=== PATIENT | female | born 1990 | race Caucasian/White ===

== ENCOUNTER 2020-08-19 15:37 | Inpatient (IN) | payer MEDICAID ==
[~2020-08-19] VITALS: Ht 172.7 cm; Wt 113.4 kg
[2020-08-19] MEDS ORDERED: Z GUARD REMEDY 2 OZ OINT TP PRN (16:30)
[2020-08-19] MEDS ORDERED: ACETAMINOPHEN 325 MG TABLET PO PRN (16:30)
[2020-08-19] MEDS ORDERED: ONDANSETRON HCL/PF 4 MG/2 ML VIAL IVP PRN (16:30)
[2020-08-19] MEDS ORDERED: IV NS 0.9% 1,000 ML IV PRN (16:30)
[2020-08-19] MEDS ORDERED: MAGNESIUM HYDROXIDE 30 ML UDC PO PRN (16:30)
[2020-08-19] MEDS ORDERED: HYDROCODONE/APAP 5/325MG TABLET PO PRN (16:30)
[2020-08-19] MEDS ORDERED: MAG HYDROX/AL HYDROX/SIMETH 30 ML UDC PO PRN (16:30)
[2020-08-19] MEDS: METRONIDAZOLE 500 MG TABLET PO SCH (18:29)
[2020-08-19] MEDS: CEFTRIAXONE 1 G in IV D5W 50 ML IV SCH (18:30)
[2020-08-19 18:44] VITALS: BP 130/58
--- NOTE | 2020-08-19 18:47 | NUR ---
MS RN NOTE PATIENT TRANSFERED FOR[facility] 08/19/20 AT 1600 ADMITTING DIAGNOSIS SEPSIS, VITAL SIGNS STABLE, BREATHING EVEN AND UNLABORED, DENIED ALL PAIN, SKIN ASSESSMENT CLEAR, NO WOUNDS, INTACT. TOLERATING ROOM AIR WELL. BED LOW AND LOCKED POSITION SIDE RAILS UP X2 , HOB ELEVATED, HAT IN REACH FOR STOOL SAMPLE, WAITING ON COLLECTION. RAPID COVID TEST PENDING , ON ISOLATION PRECAUTIONS UNTIL RESULTS.
--- NOTE | 2020-08-19 19:05 | NUR ---
MS RN OPENING NOTES: RECEIVED PATIENT IN BED, ASLEEP. CALL LIGHT WITHIN REACH. BED IN LOWEST AND LOCKED POSITION. NO S/S OF DISTRESS NOTED.
[2020-08-19 20:01] VITALS: BP 128/73
[2020-08-20] MEDS: METRONIDAZOLE 500 MG TABLET PO SCH ×3 (05:07→21:06)
[2020-08-20 05:52] LABS: BASOPHILS % (AUTO) 0.2 % (0.0-2.0); EOSINOPHILS % (AUTO) 0.3 % (0.0-6.0); HEMATOCRIT 35 % (33-45); HEMOGLOBIN 11.3 g/dL (11.5-14.8); LYMPHOCYTES # (AUTO) 2.7 /CMM (0.8-4.8); LYMPHOCYTES % (AUTO) 19.6 % (20.0-44.0); MEAN CORPUSCULAR HGB CONC 33 g/dl (31.0-36.0); MEAN CORPUSCULAR VOLUME 88 fL (82-100); MONOCYTES # (AUTO) 1.2 /CMM (0.1-1.30); MONOCYTES % (AUTO) 8.8 % (2.0-12.0); NEUTROPHILS # (AUTO) 9.9 /CMM (1.8-8.9); NEUTROPHILS % (AUTO) 71.1 % (43.0-81.0); PLATELET COUNT (AUTO) 276 /CMM (150-450); RED BLOOD CELL COUNT(AUTO) 3.99 MIL/uL (4.0-5.2); WHITE BLOOD COUNT (AUTO) 13.9 K/uL (4.3-11.0)
[2020-08-20 06:16] LABS: ALBUMIN 2.9 g/dL (3.4-5.0); BILIRUBIN,TOTAL 0.7 mg/dL (0.2-1.0); CALCIUM, SERUM 8.7 mg/dL (8.5-10.1); CREATININE 0.7 mg/dL (0.6-1.3); PHOSPHORUS 2.3 mg/dL (2.5-4.9); POTASSIUM 2.9 mmol/L (3.5-5.1)
--- NOTE | 2020-08-20 07:30 | NUR ---
MS CASTAÑEDA OPENING NOTES RECEIVED PATIENT IN BED, RESTING. PATIENT HAS S/S OF ACUTE DISTRESS NOTED. NO SOB. IV RUNNING NS @ 75 ML/HR ON LFA BUTTERFLY. PATIENT IS AMBULATORY NO SKIN ISSUES PER REPORT. ABLE TO MAKE NEEDS KNOWN. CALL LIGHT WITHIN REACH. BED IN LOWEST AND LOCKED POSITION. WILL CONTINUE TO MONITOR THROUGHOUT SHIFT Addendum: 08/20/20 at 1843 by MATTHEW CASEY RN CORRECTION; PATIENT HAS NO S/S OF ACUTE DISTRESS
[2020-08-20 08:04] VITALS: BP 149/92
[2020-08-20] MEDS ORDERED: POTASSIUM CHLORIDE 20 MEQ TAB.PRT.SR PO ONE (09:30)
[2020-08-20] MEDS ORDERED: K PHOS NEUTRAL 250 MG TABLET PO ONE (11:00)
--- NOTE | 2020-08-20 11:03 | NUR ---
RN NOTES SPOKE WITH PATIENT REGARDING VACCINATION STATUS OF FLU VACCINE. PATIENT WAS OKAY TO GET FLU VACCINE CLOSE TO HER DISCHARGE FROM THE HOSPITAL.
[2020-08-20 16:04] VITALS: BP 123/68
[2020-08-20] MEDS: CEFTRIAXONE 1 G in IV D5W 50 ML IV SCH (17:15)
--- NOTE | 2020-08-20 18:53 | NUR ---
MS RN CLOSING NOTES PATIENT IN BED, RESTING. PATIENT HAS NO S/S OF ACUTE DISTRESS NOTED. NO SOB. PATIENT HAS LFA BUTTERLY. PATIENT VERBALIZED TO NOT BE HOOKED UP TO THE IV FLUIDS FOR NOW. PATIENT IS ABLE TO DRINK AND VERBALIZED UNDERSTANDING OF THE IMPORTANCE OF HYDRATION. PATIENT IS AMBULATORY NO SKIN ISSUE. ABLE TO MAKE NEEDS KNOWN. CALL LIGHT WITHIN REACH. BED IN LOWEST AND LOCKED POSITION. NEEDS MET THROUGHOUT THE SHIFT.
--- NOTE | 2020-08-20 19:30 | NUR ---
MS/RN NOTES RECEIVED PATIENT IN BED RESTING. PATIENT IS ALERT AND ORIENTED X 4. PATIENT BREATHING IS EVEN AND UNLABORED. NO SOB OR RESPIRATORY DISTRESS NOTED. PATIENT STATES NO PAIN AT THIS TIME. SAFETY MEASURES ARE IN PLACE, BED IS LOCKED AND PLACED IN THE LOW POSITION, SIDE RAILS UP X 2, CALL LIGHT IS WITHIN REACH. WILL CONTINUE WITH PATIENT PLAN OF CARE.
[2020-08-20 20:00] VITALS: BP 156/93
[2020-08-21] MEDS: METRONIDAZOLE 500 MG TABLET PO SCH (05:15)
[2020-08-21 06:09] LABS: BASOPHILS # (AUTO) 0.1 /CMM (0.0-0.2); BASOPHILS % (AUTO) 1.3 % (0.0-2.0); EOSINOPHILS % (AUTO) 1.1 % (0.0-6.0); HEMATOCRIT 37 % (33-45); LYMPHOCYTES # (AUTO) 2.8 /CMM (0.8-4.8); MEAN CORPUSCULAR HGB CONC 33 g/dl (31.0-36.0); MEAN CORPUSCULAR VOLUME 87 fL (82-100); MONOCYTES % (AUTO) 9.4 % (2.0-12.0); NEUTROPHILS # (AUTO) 6.3 /CMM (1.8-8.9); NEUTROPHILS % (AUTO) 61.2 % (43.0-81.0); PLATELET COUNT (AUTO) 287 /CMM (150-450); RED BLOOD CELL COUNT(AUTO) 4.23 MIL/uL (4.0-5.2); WHITE BLOOD COUNT (AUTO) 10.3 K/uL (4.3-11.0)
--- NOTE | 2020-08-21 06:35 | NUR ---
MS/RN CLOSING NOTES PATIENT IN BED RESTING. PATIENT IS ALERT AND ORIENTED X 4. PATIENT BREATHING IS EVEN AND UNLABORED. NO SOB OR RESPIRATORY DISTRESS NOTED. PATIENT STATES NO PAIN AT THIS TIME. ALL NEEDS HAVE BEEN MET DURING SHIFT. SAFETY MEASURES ARE IN PLACE, BED IS LOCKED AND PLACED IN THE LOW POSITION, SIDE RAILS UP X 2, CALL LIGHT IS WITHIN REACH. WILL ENDORSE CARE TO DAY SHIFT NURSE.
--- NOTE | 2020-08-21 07:25 | NUR ---
MS OPENING NOTES PATIENT IN BED SLEEPING, EASILY AWAKENED, A/O X 3. NO SIGNS OF RESPIRATORY DISTRESS OR SHORTNESS OF BREATH NOTED. NO PAIN REPORTED AT THIS TIME. SAFETY MEASURES IN PLACE, BED LOCKED IN LOWEST POSITION, RAILS UP X 2, CALL LIGHT WITHIN REACH. WILL CONTINUE TO MONITOR AND CONTINUE WITH PATIENT PLAN OF CARE
[2020-08-21 08:00] VITALS: BP 145/90
--- NOTE | 2020-08-21 09:16 | NUR ---
MS RN NOTE PATIENT SEEN AND EVALUATED BY DR. TATY GUTIERREZ WITH ORDER FOR DISCHARGE AND WANTS TO ADMINISTER ROCEPHIN IV PRIOR TO GOING HOME
--- NOTE | 2020-08-21 11:43 | NUR ---
MS RN NOTE CLARIFIED WITH TATY LOVELACE REGARDING ROCEPHIN IV WAS DISCONTINUED, IF OKAY FOR DISCHARGE EVEN IF NOT GIVEN BEFORE GOING HOME, MD SAID OKAY TO GO HOME WITHOUT GIVING ROCEPHIN. ORDER CLARIFIED AND READ BACK
--- NOTE | 2020-08-21 18:00 | NUR ---
MS LUMBER MARKER NOTES PATIENT DISCHARGED HOME IN STABLE CONDITION, A/O X 4. NO ACUTE DISTRESS OR SOB NOTED. DISCHARGE INSTRUCTIONS GIVEN TO PATIENT AND PATIENT VERBALIZED UNDERSTANDING. SKIN INTACT. ALL BELONGINGS ACCOUNTED FOR. IV ACCESS REMOVED, NO BLEEDING, NO REDNESS NOTED. ASSISTED PATIENT TO THE LOBBY AND PICKED UP BY MOTHER VIA PRIVATE CAR IN STABLE CONDITION.
== END 2020-08-21 17:59 | disposition home or self-care (01) | DRG 249 ==
LOC: MED 15:37
PROVIDERS: ADMIT Internal Medicine; ATTEND Internal Medicine
DX: A09 Infectious gastroenteritis and colitis, unspecified (principal); K80.10 Calculus of gallbladder with chronic cholecystitis without obstruction; K76.0 Fatty (change of) liver, not elsewhere classified; Z20.822 Contact with and (suspected) exposure to COVID-19; Z91.048 Other nonmedicinal substance allergy status; N39.0 Urinary tract infection, site not specified; F41.0 Panic disorder [episodic paroxysmal anxiety]; E66.9 Obesity, unspecified; Z68.38 Body mass index [BMI] 38.0-38.9, adult
CPT/HCPCS: 36415; 80053-TC; 80061-TC; 83735-TC; 84100-TC; 84703-TC; 85025-TC; 87081-TC; G0378; J0696; J7030; J7060